=== PATIENT | female | born 1985 | race Caucasian/White ===

== ENCOUNTER 2016-08-02 21:39 | Emergency (ER) | payer OTHER ==
[~2016-08-02] VITALS: Ht 162.6 cm; Wt 86.6 kg
[2016-08-02 22:25] LABS: HEMATOCRIT 41.3 % (36.0-46.0); MCH 29.4 PG (29.0-34.0); MCHC 33.7 G/DL (30.0-36.0); MCV 87.3 FL (83-99); MEAN PLAT.VOLUME 9.1 uM^3 (9.5-12.4); PLATELET COUNT 339 K/uL (156-360); RBC DIS.WIDTH-CV 11.9 % (11.8-14.6); RBC DIS.WIDTH-SD 38.4 % (39-53); RED BLOOD COUNT 4.73 M/uL (3.80-5.20)
[2016-08-02 22:33] LABS: CHLORIDE 108 mEq/L (99-109); POTASSIUM 3.6 mEq/L (3.7-5.4); SODIUM 141 mEq/L (136-147)
[2016-08-02 22:35] LABS: GLUCOSE 139 mg/dL (70-99)
[2016-08-02 22:36] LABS: ANION GAP 11 MEQ/L (2-14)
[2016-08-02 22:39] LABS: GFR ESTIMATE (CALCULATED) > 59 mL/min/
[2016-08-02 22:40] LABS: UREA NITROGEN (BUN) 12 mg/dL (9-23)
[2016-08-02 22:46] LABS: TROP-I INTERPRETATION NEGATIVE; TROPONIN-I < 0.01 ng/mL (0.0-0.30)
[2016-08-02 23:41] LABS: TOTAL BILIRUBIN 0.2 mg/dL (0.0-1.0)
[2016-08-02 23:42] LABS: ALKALINE PHOSPHATASE 52 IU/L (3-129)
[2016-08-02 23:45] LABS: DIRECT BILIRUBIN 0.1 mg/dL (0.0-0.3)
[2016-08-02 23:46] LABS: LIPASE 33 U/L (1.0-51.0)
[2016-08-03 00:07] LABS: D-DIMER ELISA 0.25 mg/L FEU (< 0.57)
[2016-08-03 00:44] LABS: QUANTITATIVE HCG < 4.0 MIU/ML
[2016-08-03 01:40] LABS: TROP-I INTERPRETATION NEGATIVE; TROPONIN-I < 0.01 ng/mL (0.0-0.30)
[2016-08-03 01:43] LABS: ADD MIUA? YES; BILIRUBIN NEGATIVE; BLOOD NEGATIVE; COLOR YELLOW ((YELLOW)); GLUCOSE (STRIP) NEGATIVE; KETONES NEGATIVE; LEUKOCYTES TRACE; NITRITE NEGATIVE; PROTEIN (STRIP) NEGATIVE; SPECIFIC GRAVITY 1.024 (1.000-1.030); UROBILINOGEN 0.2 MG/DL (0.2-1.0)
[2016-08-03 01:46] LABS: BACTERIA NONE SEEN /HPF; EPITHELIAL CELLS RARE /HPF; MUCUS TRACE /LPF; RED BLOOD CELLS 0-5 /HPF (0-5); UCUL ADDED? NO; WHITE BLOOD CELLS 0-5 /HPF (0-5)
[2016-08-03] MEDS ORDERED: NAPROSYN500 MG PO (02:05)
[2016-08-03 02:27] VITALS: BP 109/75
== END 2016-08-03 03:23 | disposition home or self-care (01) ==
LOC: EME 21:39
PROVIDERS: Emergency Medicine
DX: R07.89 Other chest pain (principal)
CPT/HCPCS: 71020; 80048; 80076; 81003; 83690; 84484; 84702; 85027; 85379; 93005; 99281; 99285; J1885